=== PATIENT | male | born 1955 | race Caucasian/White ===

== ENCOUNTER 2017-03-08 11:58 | Emergency (ER) | payer MEDICARE, OTHER ==
--- NOTE | ~2017-03-08 | CR72 ---
[facility] A Service of [facility] RADIOLOGY TEXT RESULTS PATIENT: JOSE A CALDERON LOCATION: [facility] : [birth year] UNIT #: [id number] AGE: [address]: Lesly Hunter MD SEX: M ORDER DR: [id number] [facility] [address] [place], [place] [address] [id number] MR#: [id number] Acc #: [id number] NAME: JOSE A CALDERON : 1955 SEX: M STUDY DATE/TIME: 03/08/2017 12:41 UNIT: [facility] ROOM: STUDY DESCRIPTION: CR Chest Single View Portable Attending Physician: Lesly Hunter M.D. Ordering Physician: Lesly Hunter M.D. Primary Care Physician: Primary Care Physician No MEDICAL IMAGING REPORT This report is preliminary unless electronic signature is present EXAM Portable chest INDICATION Cough today COMPARISON 07/30/2014 FINDINGS Stable chronic interstitial opacities. No acute infiltrate. Heart size stable. Old rib fractures on the right. IMPRESSION Stable chronic interstitial changes. No acute finding. Dictated by... Eldon Fried M.D. THIS IS AN ELECTRONICALLY VERIFIED REPORT Eldon Fried M.D. at 03/08/2017 5:04 PM Shantell TD: 03/08/2017 14:27 JOB #: [id number] MEDICAL IMAGING REPORT Page 1 of 1 COPY
[~2017-03-08 11:58] MED LIST: ATARAX PO; NAPROSYN500 MG PO; ORUDIS75 M1 PO
[2017-03-08 13:11] LABS: BASOPHIL% 0.4 % (0-2.5); EOSINOPHIL# 0.1 X10e3 (0-0.7); EOSINOPHIL% 0.8 % (0.0-7.0); HEMATOCRIT 45.7 % (38.0-50.0); HEMOGLOBIN 14.9 gm/dL (13.0-16.0); LYMPHOCYTE# 1.6 X10e3 (1.0-3.5); LYMPHOCYTE% 20.4 % (17.0-45.0); MEAN CELL VOLUME 90.7 FL (83-96); MEAN CORPUSCULAR HEMOGLOBIN 29.5 PG (28-34); MEAN CORPUSCULAR HGB CONC 32.5 g/dL (30-36); MEAN PLATELET VOLUME 7.2 FL (6.5-11.5); MONOCYTE# 0.7 X10e3 (0-1.0); MONOCYTE% 8.9 % (3.0-12.0); NEUTROPHIL# 5.3 X10e3 (1.5-7.1); NEUTROPHIL% 69.5 % (40-75); PLATELET COUNT 289 X10e3 (140-420); RED BLOOD COUNT 5.04 X10e (3.90-5.60); RED CELL DISTRIBUTION WIDTH 15.5 % (11.0-15.5); WHITE BLOOD COUNT 7.6 X10e3 (4.0-10.5)
[2017-03-08 13:19] LABS: DIFF IND NO
[2017-03-08 13:49] LABS: ALBUMIN SERUM 4.6 g/dL (3.5-5.0); ALCOHOL BLOOD <5 mg/dL ([, 0]); ALKALINE PHOSPHATASE 101 U/L (32-92); ALT (SGPT) 19 U/L (10-40); AST (SGOT) 33 U/L (10-42); BILIRUBIN, DIRECT 0.1 mg/dL (0.0-0.2); BILIRUBIN,INDIRECT 0.7 mg/dL (0.0-0.9); BILIRUBIN,TOTAL 0.8 mg/dL (0.2-2.0); BLOOD UREA NITROGEN 10 mg/dL (9-23); BUN/CREATININE RATIO 14.28; CALCIUM SERUM 9.2 mg/dL (8.4-10.2); CARBON DIOXIDE 26 mmol/L (22-31); CHLORIDE 101 mmol/L (100-111); CPK (CREATINE PHOSPHOKINASE) 344 IU/L (36-174); CREATININE SERUM 0.7 mg/dL (0.6-1.4); GLOM FILT RATE Estimated 100.5 mL/min (>60); GLUCOSE FASTING 82 mg/dL (70-110); POTASSIUM 3.8 mmol/L (3.5-5.1); PROTEIN TOTAL SERUM 8.4 g/dL (6.0-8.3); SODIUM 135 mmol/L (135-145)
== END 2017-03-08 14:20 | disposition home or self-care (01) ==
LOC: CED 11:58
PROVIDERS: Emergency Medicine
DX: J44.1 Chronic obstructive pulmonary disease with (acute) exacerbation (principal); F41.9 Anxiety disorder, unspecified; E78.5 Hyperlipidemia, unspecified; M54.9 Dorsalgia, unspecified; G89.29 Other chronic pain; F25.9 Schizoaffective disorder, unspecified; F17.210 Nicotine dependence, cigarettes, uncomplicated
CPT/HCPCS: 36415; 71010; 80048; 80076; 82550; 85025; 96361; 96374; 96375; 99284; G0480; J1200; J2930

== ENCOUNTER 2017-03-08 16:12 | Inpatient (IN) | payer MEDICARE, OTHER ==
--- NOTE | ~2017-03-08 | PN ---
Unit #: [id number] #: [id number] Patient: JOSE A CALDERON [id number] [facility] [address] [place] [address] [id number] I MR#: [id number] NAME: JOSE A CALDERON ROOM: 30 Age: 61 Sex: M Admission Date: 03/08/2017 : 1955 Attending Physician: Jyothi Gibson M.D. Admitting Physician: Jyothi Gibson M.D. Primary Care Physician: Primary Care Physician Asha EASLEY NOTES DATE 03/13/2017 DISCUSSION Mr. Calderon is a 61-year-old, white male with mood disorder who was seen today and chart was reviewed and case was discussed with the staff. He has been extremely belligerent and hostile and abusive and has been using profanity and verbally abusive language towards me demanding to give him an Ativan and when I told him we do feel comfortable and that it feel rationale, he starts using verbally abusive language and starts calling us names and then wants me to change the doctors so he could have some other doctor who will prescribe that kind of medication. He as such remains at poor prognosis and refuses to cooperate with any form of treatment and only wants to have Ativan even though he does not appear to be exhibiting any acute distress or discomfort warranting any such prescriptions. MENTAL STATUS EXAM An elderly white male who was casually dressed with fair personal hygiene, appears to be in no acute distress or discomfort. He was awake and alert with impaired attention and concentration. His mood was anxious with a congruent affect. His speech is slow and tangential. His thought processes were disorganized with some looseness of associations. His insight and judgement remains significantly impaired. TREATMENT PLAN 1. We will continue him on his current treatment protocol. We will monitor his response to the medication and make further adjustments as needed. 2. We will continue to follow up. Dictated by... Zach Rivas/flavio TD: 03/14/2017 04:05 JOB #: [id number] Unit #: [id number] #: [id number] Patient: JOSE A CALDERON PROGRESS NOTES Page 1 of 1 X Jyothi Gibson MD NOTE
--- NOTE | ~2017-03-08 | HP ---
Unit #: [id number] #: [id number] Patient: KOLTON CALDERON [id number] [place] [address] [id number] I MR#: [id number] NAME: KOLTON CALDERON ROOM: P130 Age: 61 Sex: M Admission Date: 03/08/2017 : 1955 Attending Physician: Jyothi Gibson M.D. Admitting Physician: Jyothi Gibson M.D. Primary Care Physician: Primary Care Physician No HISTORY AND PHYSICAL HISTORY OF PRESENT ILLNESS Kolton is a 61 year old admitted to [address] [place] [address] with depression and psychotic behavior. PAST MEDICAL HISTORY 1. COPD. 2. BPH. PAST SURGICAL HISTORY Nothing reported. ALLERGIES No known drug allergies. SOCIAL HISTORY Smokes 1 pack per day. Denies alcohol and illicit drug use. FAMILY HISTORY Medically noncontributory. REVIEW OF SYSTEMS CONSTITUTIONAL: No fever or chills. HEENT: Denies any sore throat, ear pain or runny nose. CARDIOVASCULAR: Denies chest pain, irregular heart rhythm or palpitations. CHEST: Denies shortness of breath or cough. No hemoptysis. GASTROINTESTINAL: Denies nausea, vomiting, diarrhea or chronic constipation. ENDOCRINE: Denies history of increased thirst or urination. No recent significant weight loss or gain. GENITOURINARY: Denies dysuria, frequency, or hematuria. SKIN: Denies any rashes. HEMATOLOGIC: Denies history of increased bleeding or bruising. MUSCULOSKELETAL: Denies any hot, swollen joints. No generalized muscle pain. NEUROLOGIC: Denies problems with vision or speech. No frequent, severe headaches. No numbness, tingling or weakness in any extremities. Denies loss of bladder or bowel control. CURRENT MEDICATIONS 1. Desyrel 100 mg q.h.s. 2. Celexa 20 mg daily. 3. Risperdal 0.5 mg b.i.d. 4. Vistaril p.r.n. Unit #: [id number] #: [id number] Patient: KOLTON CALDERON 5. Milk of Magnesia p.r.n. 6. Maalox p.r.n. 7. Tylenol p.r.n. 8. Symbicort b.i.d. 9. Nicotine patch 21 mg daily. PHYSICAL EXAMINATION GENERAL: Alert, well-nourished, in no apparent distress. VITAL SIGNS: Blood pressure 116/78, heart rate 80, respirations 16, temperature 98.6. WEIGHT: 120. HEIGHT: 5 feet 5 inches. SKIN: Warm and dry without rash or lesion. HEENT: Normocephalic. TMs not viewed. Oral and nasal passages clear. Conjunctivae clear. PERRLA. EOMs intact. NECK: Supple without lymphadenopathy or thyromegaly. HEART: Regular rate and rhythm without murmur. LUNGS: Clear. ABDOMEN: Soft, nontender. : Not done. EXTREMITIES: No evidence of cyanosis, clubbing or edema. Moves all without focal deficit. NEUROLOGICAL: Grossly within normal limits. Cranial Nerves: II: Visual simental are intact. III, IV AND : Extraocular movements are intact. Pupils are equal, round and reactive to light. V: Facial sensation is grossly normal. VII: Facial movements and expression are normal. VIII: Auditory acuity grossly intact. IX, X: Uvula is midline. Phonation is normal. XI: Patient shrugs shoulders and turns head normally. XII: Tongue protrudes in the midline. Sensory and Motor Function: Sensory and motor sensation is grossly normal. Motor: moves all extremities well. Coordination: Gait is normal. Deep Tendon Reflexes: Intact. IMPRESSION Psychiatric admission. RECOMMENDATIONS PSYCHIATRIC: Per psychiatrist. MEDICAL: See no contraindication to participate in facility's activities. MEDICAL PROGNOSIS Good. MEDICAL CONDITION Stable. Dictated by... Ashlie Elizabeth P.A.-C. for Zach Mckeon/alba TD: 03/09/2017 21:26 JOB #: [id number] Unit #: [id number] #: [id number] Patient: KOLTON CALDERON HISTORY AND PHYSICAL Page 1 of 1 X Ashlie Elizabeth HISTORY AND PHYSICAL
--- NOTE | ~2017-03-08 | PN ---
Unit #: [id number] #: [id number] Patient: JOSE A CALDERON [id number] [facility] [address] [place] [address] [id number] I MR#: [id number] NAME: JOSE A CALDERON ROOM: 30 Age: 61 Sex: M Admission Date: 03/08/2017 : 1955 Attending Physician: Jyothi Gibson M.D. Admitting Physician: Jyohti Gibson M.D. Primary Care Physician: Primary Care Physician Asha MCCRAY PROGRESS NOTES DATE 03/12/2017 DISCUSSION Mr. Calderon is a 61-year-old, white male who was seen today and chart was reviewed and case was discussed with the staff. He has been anxious, withdrawn and rather seclusive to herself and has been still exhibiting some medication seeking behavior. Meanwhile, he has been taking medications and tolerating them fairly well with no reported side effects. MENTAL STATUS EXAM Middle-aged white male who was casually dressed with fair personal hygiene, appears to be in no acute distress or discomfort. He was awake and alert with impaired attention and concentration. His mood was anxious with congruent affect. His speech was slow and tangential. His thought processes were disorganized with some looseness of associations and flight of ideas. His insight and judgement remains significantly impaired. TREATMENT PLAN 1. We will continue him on his current medications and treatment protocol. We will monitor his response to the medication and make further adjustments as needed. 2. We will continue to follow up. Dictated by... Zach Rivas/flavio TD: 03/13/2017 05:22 JOB #: [id number] Unit #: [id number] #: [id number] Patient: JOES A CALDERON PROGRESS NOTES Page 1 of 1 X Jyothi Gibson MD PROGRESS NOTE
--- NOTE | ~2017-03-08 | PN ---
Unit #: [id number] #: [id number] Patient: JOSE A CALDERON [id number] [facility] [address] [place] [address] [id number] I MR#: [id number] NAME: JOSE A CALDERON ROOM: P130 Age: 61 Sex: M Admission Date: 03/08/2017 : 1955 Attending Physician: Jyothi Gibson M.D. Admitting Physician: Jyothi Gibson M.D. Primary Care Physician: Primary Care Physician Asha EASLEY NOTES DATE 03/10/2017 DISCUSSION Mr. Calderon is a 61-year-old, white male who was seen today and chart was reviewed and case was discussed with the staff. He has been extremely agitated and has been verbally abusive calling me names and using profanity wanting to be on Ativan and refusing to have any other medication and when told that we are not able to prescribe him Ativan due to lack of justification and addictive potential and discussion about benzodiazepine, he gets verbally abusive and starts using profanity. MENTAL STATUS EXAM An elderly white male who was casually dressed with fair personal hygiene, appears to be in no acute distress or discomfort. He was awake and alert with impaired attention and concentration. His mood was anxious with a congruent affect. His was pressured and tangential. His thought process was disorganized with some looseness of associations and flight of ideas. His insight and judgement remains significantly impaired. TREATMENT PLAN 1. We will continue him on his current medications and treatment protocol. We will monitor his response and make further adjustments as needed. 2. We will continue to follow up. Dictated by... Zach Rivas/flavio TD: 03/12/2017 02:28 JOB #: [id number] Unit #: [id number] #: [id number] Patient: JOSE A CALDERON TRACEE NOTES Page 1 of 1 X Jyothi Gibson MD PROGRESS NOTE
--- NOTE | ~2017-03-08 | PA ---
Unit #: [id number] #: [id number] Patient: JOSE A CALDERON [id number] [facility] [address] [place] [address] [id number] I MR#: [id number] NAME: JOSE A CALDERON ROOM: P130 Age: 61 Sex: M Admission Date: 03/08/2017 : 1955 Date of Assessment: Attending Physician: Jyothi Gibson M.D. Admitting Physician: Jyothi Gibson M.D. Primary Care Physician: Primary Care Physician No PSYCHIATRIC ASSESSMENT DATE OF SERVICE 03/09/2017. IDENTIFYING DATA Mr. Schilling is a 61-year-old single, disabled, white male, who is a resident of [place], [place], and is known to us from previous encounter and was self-referred to the hospital on a voluntary basis. CHIEF COMPLAINT "I'm too sick, I can't eat, I can't sleep." HISTORY OF PRESENT ILLNESS Mr. Schilling is a 61-year-old white male, who was self-referred to the hospital reporting increasing anxiety that has been interfering with his functionality, "I'm too sick, I cannot eat, I cannot sleep because I either get confused or get sick or sometimes both." The patient reports that he has some loss and grief and that "my brother is ready to if he is not already ." The patient stated that his brother is going to the hospital and the patient lost contact with him and reports poor social support system and increasing depression, anxiety, irritability, restlessness, feelings of hopelessness and helplessness, and suicidal ideations. SUBSTANCE ABUSE HISTORY The patient reports extensive history of substance abuse and dependence including experimentation with alcohol, cannabis, cocaine, acid, opioids, amphetamines, and synthetic drugs, though he reports that he has not used any drugs in the last few years. PAST PSYCHIATRIC HISTORY The patient has had a [facility] of [facility] in addition to being at [facility] and at [facility]. Review of the medical records indicate that currently he is not active in any treatment program and is not seeing a psychiatrist and is not taking any psychotropic medications. PAST MEDICAL HISTORY The patient's medical history is significant for COPD. ALLERGIES No known medication allergies. PERSONAL AND SOCIAL HISTORY Unit #: [id number] #: [id number] Patient: JOES A CALDERON A 61-year-old white male, who reports that he is single, disabled, and lives alone and has poor social support system. MENTAL STATUS EXAMINATION An elderly white male, who was casually dressed with fair personal hygiene, appears to be in no acute distress or discomfort. He was awake and alert on interaction with intact orientation to time, place, and person. His mood was anxious and depressed with a congruent affect. His speech was slow and restricted in content. His thought processes were disorganized with some looseness of associations and flight of ideas and paranoid ideations. His insight and judgment remain significantly impaired. DIAGNOSTIC IMPRESSION Psychiatric: Schizoaffective disorder, bipolar type, most recent episode depressed, recurrent, moderate, without psychotic features. Medical: Chronic obstructive pulmonary disease. Stressors: Moderate psychosocial stressors. TREATMENT PLAN 1. The patient has presented with a history of mood disorder and has been decompensating and will need inpatient hospitalization for safety and stabilization. We will start him back on his home medications and we will adjust the medications and monitor response. 2. Supportive therapy was provided to the patient. 3. Safe, structured, and nourishing environment will be provided. ESTIMATED LENGTH OF STAY 4 to 5 days. ABILITY TO HELP SELF Limited. WILLINGNESS TO HELP SELF The patient appears to be willing to help self. STRENGTHS 1. Communicative. 2. Cooperative. PROBLEMS 1. Chronic dysphoric symptoms. 2. Poor social support system. DISCHARGE CRITERIA This will be contingent upon the patient's ability to show resolution of his depression and anxiety and his ability to stay safe to himself, particularly after discharge from the hospital. Dictated by... Zach Rivas/arthur TD: 03/09/2017 18:03 JOB #: [id number] Unit #: [id number] #: [id number] Patient: JOSE A CALDERON PSYCHIATRIC ASSESSMENT Page 1 of 1 X Jyothi Gibson MD X PSYCHIATRIC ASSESSMENT
--- NOTE | ~2017-03-08 | DS ---
Unit #: [id number] #: [id number] [facility]: [facility] [id number] [facility] [address] [place] [address] [id number] MR#: [id number] NAME: JOSE A CALDERON ROOM: 30 Age: 61 Sex: M Admission Date: 03/08/2017 : 1955 Discharge Date: 03/14/2017 Attending Physician: Jyothi Gibson M.D. Primary Care Physician: Primary Care Physician No DISCHARGE SUMMARY IDENTIFYING DATA Mr. Calderon is a 61-year-old, single, disabled, white male, who is a resident of [place], [place], and is known to us from previous encounter, was self-referred to the hospital on a voluntary basis. DISCHARGE DIAGNOSES Psychiatric: Schizoaffective disorder, bipolar type, most recent episode depressed, recurrent, moderate, without psychotic features. Medical: Chronic obstructive pulmonary disease. Stressors: Moderate psychosocial stressors. HISTORY OF PRESENT ILLNESS Please see initial psychiatric evaluation for details. PAST PSYCHIATRIC HISTORY Please see initial psychiatric evaluation for details. PAST MEDICAL HISTORY Please see initial psychiatric evaluation for details. HOSPITAL COURSE The patient was admitted to the adult psychiatric unit at [facility] and was oriented to the hospital environment. Routine p.r.n. medications were initiated, and he was started back on his home medication and Risperdal and Celexa were initiated to help with the bipolar; however, he was complaining of significant anxiety and BuSpar was given, but the patient was obsessed about benzodiazepines, particularly Ativan, was demanding those and was not given. He was seen to be getting verbally abusive, profanity, calling me names and threatening me and intimidating me and pressuring me to prescribe the benzodiazepines, particularly Ativan. I told him that I would not be able to justify the use of that and the patient was then seen to be showing poor motivation towards treatment; however, he was able to show a therapeutic response to Celexa and Risperdal, but no psychosis, depression, or suicidal thoughts and was not meeting further criteria for inpatient psychiatric hospitalization and as such, it was decided that he will be discharged and will continue treatment on an outpatient basis. DISCHARGE CONDITION Stable. Unit #: [id number] #: [id number] Patient: JOSE A CALDERON PROGNOSIS Fair. Dictated by... Zach Rivas/arthur TD: 03/14/2017 07:10 JOB #: [id number] DISCHARGE SUMMARY Page 1 of 1 X Jyothi Gibson MD DISCHARGE SUMMARY
--- NOTE | ~2017-03-08 | PN ---
Unit #: [id number] #: [id number] Patient: JOSE A CALDERON [id number] [facility] [address] [place] [address] [id number] MR#: [id number] NAME: JOSE A CALDERON ROOM: 30 Age: 61 Sex: M Admission Date: 03/08/2017 : 1955 Attending Physician: Jyothi Gibson M.D. Admitting Physician: Jyothi Gibson M.D. Primary Care Physician: Primary Care Physician Asha EASLEY NOTES DATE March 11, 2017 DISCUSSION Mr. Calderon is a 61-year-old white male, who was seen today and chart was reviewed and the case was discussed with the staff. He has been anxious, withdrawn, and rather seclusive to himself. Meanwhile, he has been cooperative with the treatment recommendations and he has been taking the medications and tolerating them fairly well with no reported side effects. MENTAL STATUS EXAMINATION An elderly white male, who was casually dressed with fair personal hygiene and appears to be in no acute distress or discomfort. He was awake and alert with impaired attention and concentration. His mood is anxious with a congruent affect. His speech is slow and tangential. His thought processes are disorganized with some looseness of associations and flight of ideas. His insight and judgment remain slightly impaired. TREATMENT PLAN 1. We will continue him on his current medications and treatment protocol, and will monitor his response to the medications, and make further adjustments as needed. 2. We will continue to followup. Dictated by... Zach Rivas/alejo TD: 03/12/2017 10:54 JOB #: [id number] Unit #: [id number] #: [id number] Patient: JOSE A CALDERON PROGRESS NOTES Page 1 of 1 X Jyothi Gibson MD PROGRESS NOTE
[2017-03-12 09:41] LABS: URINE APPEARANCE CLEAR; URINE BILIRUBIN NEG (NEG); URINE BLOOD NEG (NEG); URINE COLOR YELLOW; URINE GLUCOSE NEG (NEG); URINE KETONE NEG (NEG); URINE LEUKOCYTE ESTERASE NEG (NEG); URINE NITRATE NEG (NEG); URINE PH 6.5 (5-8); URINE PROTEIN NEG (NEG); URINE SPECIFIC GRAVITY 1.013 (1.003-1.035); URINE UROBILINOGEN 0.2 MG/DL (NEG)
[2017-03-12 10:11] LABS: AMPHETAMINE NEG (NEG); BARBITURATES NEG (NEG); BENZODIAZEPINES NEG (NEG); COCAINE NEG (NEG); MARIJUANA POS (NEG); OPIATES NEG (NEG); TRICYCLIC ANTIDEPRESSANTS NEG (NEG); U METHADONE NEG (NEG)
== END 2017-03-14 12:45 | disposition home or self-care (01) | DRG 885 ==
LOC: P1S 18:21
PROVIDERS: Psychiatry & Neurology Psychiatry
DX: F25.0 Schizoaffective disorder, bipolar type (principal); R45.851 Suicidal ideations; J44.9 Chronic obstructive pulmonary disease, unspecified; F17.210 Nicotine dependence, cigarettes, uncomplicated
CPT/HCPCS: 80307; 81003